=== PATIENT | female | born 1975 | race Caucasian/White ===

== ENCOUNTER 2017-01-13 06:52 | Emergency (ER) | payer SELFPAY ==
[~2017-01-13] VITALS: Ht 157.5 cm; Wt 75.0 kg
[2017-01-13] MEDS ORDERED: ASPIRIN 81MG TABLET PO ONE (08:15)
[2017-01-13] MEDS ORDERED: NITROGLYCERIN OINT 1GM/INCH UDPKT TD ONE (08:15)
[2017-01-13 08:32] LABS: EOSINOPHILS % 0.8 % (0.0-5.0); HEMATOCRIT. 35.5 % (36.0-48.0); HEMOGLOBIN. 11.5 g/dL (12.0-16.0); LYMPHOCYTES % 26.3 % (20.0-50.0); MEAN CORPUSCULAR HEMOGLOBIN 26.3 pg (28.0-32.0); MEAN CORPUSCULAR HGB CONC 32.3 g/dL (31.0-37.0); MEAN CORPUSCULAR VOLUME 81.4 fL (81.0-99.0); MEAN PLATELET VOLUME 10.1 fl (7.4-10.4); NEUTROPHILS % 66.9 % (40.0-76.0); PLATELET 203 x1000/uL (130-400); RED BLOOD CELL COUNT 4.36 mill/uL (4.2-5.4); RED CELL DISTRIBUTION WIDTH 14.4 % (11.6-14.6); WHITE BLOOD COUNT 6.1 x1000/uL (4.5-11.0)
[2017-01-13 08:38] LABS: PROTHROMBIN TIME 10.7 sec
[2017-01-13 08:41] LABS: ALBUMIN 3.4 g/dL (3.4-5.0); ANION GAP 11; CALCIUM 8.5 mg/dL (8.5-10.1); CARBON DIOXIDE 25 mEq/L (21-32); CHLORIDE 108 mEq/L (98-107); INDEX HEMOLYSI 1 (1-3); INDEX ICTERIC 1 (1-4); INDEX LIPEMIC 1 (1-3); UREA NITROGEN BLOOD 10 mg/dL (7-21)
[2017-01-13 08:47] LABS: ALANINE AMINOTRANSFERASE 22 IU/L (13-61); NT PRO B-TYPE NATRIURETIC PEP 72 pg/mL (5-125); TROPONIN I < 0.02 ng/mL (0.00-0.04); eGFR > 60 mL/min (>60)
[2017-01-13 11:29] VITALS: BP 136/75
== END 2017-01-13 12:49 | disposition home or self-care (01) ==
LOC: ER 06:58
DX: R07.89 Other chest pain (principal); F41.9 Anxiety disorder, unspecified
CPT/HCPCS: 36415; 71010; 80053; 81025; 83880; 84484; 85025; 85610; 93005; 99285

== ENCOUNTER 2021-04-18 07:57 | Emergency (ER) | payer MEDICAID ==
[~2021-04-18] VITALS: Ht 152.4 cm; Wt 80.0 kg
[2021-04-18 09:39] LABS: CHLORIDE 108 mEq/L (98-107)
[2021-04-18 09:40] LABS: PROTHROMBIN TIME 10.9 sec (9.6-11.0)
[2021-04-18 09:40] LABS: BASOPHILS % 0.7 % (0.0-2.0); HEMATOCRIT. 36.8 % (36.0-48.0); MEAN CORPUSCULAR HEMOGLOBIN 25.8 pg (28.0-32.0); MEAN CORPUSCULAR VOLUME 79.1 fL (81.0-99.0); MEAN PLATELET VOLUME 9.5 fl (7.4-10.4); MONOCYTES % 10.1 % (2.0-8.0); NEUTROPHILS % 65.2 % (40.0-76.0); PLATELET 204 x1000/uL (130-400); RED BLOOD CELL COUNT 4.65 mill/uL (4.2-5.4); RED CELL DISTRIBUTION WIDTH 16.1 % (11.6-14.6)
[2021-04-18 09:42] LABS: CLARITY URINE CLOUDY (CLEAR); COLOR URINE YELLOW (YELLOW); KETONES URINE 3+ (NEGATIVE); LEUKOCYTE ESTERASE URINE 3+ (NEGATIVE); NITRITE URINE NEGATIVE (NEGATIVE); OCCULT BLOOD URINE TRACE (NEGATIVE); PH URINE 6.5 (4.5-8.0); PROTEIN URINE NEGATIVE (NEGATIVE); SPECIFIC GRAVITY URINE 1.009 (1.005-1.030)
[2021-04-18] MEDS ORDERED: NITR100C PO (09:54)
[2021-04-18] MEDS ORDERED: ONDA4TAB5 PO (09:54)
[2021-04-18 10:50] VITALS: BP 126/69
== END 2021-04-18 10:59 | disposition home or self-care (01) ==
LOC: ER 07:57
DX: N39.0 Urinary tract infection, site not specified (principal)
CPT/HCPCS: 36415; 71045; 80053; 81003; 85025; 93005; 99285

== ENCOUNTER 2021-04-28 05:41 | Emergency (ER) | payer MEDICAID ==
[~2021-04-28] VITALS: Ht 149.9 cm; Wt 74.0 kg
[~2021-04-28 05:41] MED LIST: NITR100C PO; ONDA4TAB5 PO
[2021-04-28 06:07] VITALS: BP 155/85
== END 2021-04-28 07:05 | disposition home or self-care (01) ==
LOC: ER 06:35
DX: F41.9 Anxiety disorder, unspecified (principal)
CPT/HCPCS: 99281

== ENCOUNTER 2021-12-29 06:38 | Emergency (ER) | payer MEDICAID, OTHER ==
[~2021-12-29] VITALS: Ht 149.9 cm; Wt 74.0 kg
[2021-12-29 08:30] VITALS: BP 170/83
[2021-12-29] MEDS ORDERED: SODIUM CHLORIDE 0.9% 1,000 ML IV ONE (08:45)
[2021-12-29 09:18] LABS: BASOPHILS % 0.8 % (0.0-2.0); EOSINOPHILS % 0.2 % (0.0-5.0); HEMATOCRIT. 36.4 % (36.0-48.0); HEMOGLOBIN. 11.7 g/dL (12.0-16.0); LYMPHOCYTES % 28.1 % (20.0-50.0); MEAN CORPUSCULAR HEMOGLOBIN 25.3 pg (28.0-32.0); MEAN CORPUSCULAR VOLUME 78.8 fL (81.0-99.0); MEAN PLATELET VOLUME 9.5 fl (7.4-10.4); NEUTROPHILS % 66.9 % (40.0-76.0); PLATELET 237 x1000/uL (130-400); RED BLOOD CELL COUNT 4.63 mill/uL (4.2-5.4); RED CELL DISTRIBUTION WIDTH 16.7 % (11.6-14.6)
[2021-12-29 09:22] LABS: CLARITY URINE CLEAR (CLEAR); COLOR URINE YELLOW (YELLOW); KETONES URINE NEGATIVE (NEGATIVE); LEUKOCYTE ESTERASE URINE 2+ (NEGATIVE); NITRITE URINE NEGATIVE (NEGATIVE); OCCULT BLOOD URINE 1+ (NEGATIVE); PROTEIN URINE NEGATIVE (NEGATIVE); SPECIFIC GRAVITY URINE 1.011 (1.005-1.030); UROBILINOGEN URINE 0.2 E.U./dL (0.2-1.0)
[2021-12-29 09:26] LABS: CHLORIDE 109 mEq/L (98-107)
[2021-12-29 10:04] LABS: HCG SCREEN NEGATIVE
[2021-12-29] MEDS ORDERED: CEPH500T MT (11:19)
== END 2021-12-29 11:39 | disposition home or self-care (01) ==
LOC: ER 06:38
DX: N39.0 Urinary tract infection, site not specified (principal); D25.9 Leiomyoma of uterus, unspecified; R03.0 Elevated blood-pressure reading, without diagnosis of hypertension; F41.9 Anxiety disorder, unspecified
CPT/HCPCS: 36415; 76830; 76856; 80053; 81003; 84703; 85025; 87086; 93005; 96360; 99285; J7030

== ENCOUNTER 2023-12-13 21:18 | Emergency (ER) | payer MEDICAID, OTHER ==
[~2023-12-13] VITALS: Ht 154.9 cm; Wt 80.0 kg
[~2023-12-13 21:18] MED LIST changes: +CEPH500T MT
[2023-12-13 21:20] VITALS: TEMP 98.6; O2SAT 100
[2023-12-13 23:00] LABS: BASOPHILS % 0.8 % (0.0-2.0); DIFFERENTIAL COMMENT 0; EOSINOPHILS % 1.2 % (0.0-5.0); HEMATOCRIT. 33.1 % (36.0-48.0); HEMOGLOBIN. 10.6 g/dL (12.0-16.0); LYMPHOCYTES % 26.3 % (20.0-50.0); MEAN CORPUSCULAR HEMOGLOBIN 25.5 pg (28.0-32.0); MEAN CORPUSCULAR VOLUME 79.6 fL (81.0-99.0); MONOCYTES % 6.4 % (2.0-8.0); NEUTROPHILS % 65.3 % (40.0-76.0); PLATELET 261 x1000/uL (130-400); RED BLOOD CELL COUNT 4.16 mill/uL (4.2-5.4); RED CELL DISTRIBUTION WIDTH 16.4 % (11.6-14.6)
[2023-12-13 23:08] LABS: CARBON DIOXIDE 26 mEq/L (21-32); CHLORIDE 107 mEq/L (98-107); POTASSIUM 4.1 mEq/L (3.5-5.1); SODIUM 139 mEq/L (136-145)
[2023-12-13 23:09] LABS: CALCIUM 8.8 mg/dL (8.7-10.4)
[2023-12-13 23:13] LABS: CREATININE 0.8 mg/dL (0.6-1.0); GLUCOSE 104 mg/dL (70-105); TROPONIN I HIGH SENSITIVITY 5 ng/L (3.0-34)
[2023-12-13 23:14] LABS: UREA NITROGEN BLOOD 13 mg/dL (9-23)
[2023-12-13 23:15] LABS: ALANINE AMINOTRANSFERASE 11 IU/L (10-49); ALBUMIN 4.4 g/dL (3.2-4.8); ASPARTATE AMINOTRANSFERASE 15 IU/L (<34)
[2023-12-13 23:16] LABS: BILIRUBIN TOTAL 0.2 mg/dL (0.1-1.0); PROTEIN TOTAL 7.5 g/dL (6.0-8.3)
[2023-12-14 00:23] LABS: CLARITY URINE CLOUDY (CLEAR); COLOR URINE YELLOW (YELLOW); GLUCOSE URINE NEGATIVE (NEGATIVE); KETONES URINE NEGATIVE (NEGATIVE); LEUKOCYTE ESTERASE URINE 2+ (NEGATIVE); NITRITE URINE NEGATIVE (NEGATIVE); OCCULT BLOOD URINE 2+ (NEGATIVE); PH URINE 5.5 (4.5-8.0); PROTEIN URINE NEGATIVE (NEGATIVE); SPECIFIC GRAVITY URINE 1.024 (1.005-1.030); UROBILINOGEN URINE 0.2 E.U./dL (0.2-1.0)
[2023-12-14] MEDS: ACETAMINOPHEN 325MG TABLET PO ONE (01:16)
[2023-12-14] MEDS: ONDANSETRON 4MG ODT PO ONE (01:16)
[2023-12-14] MEDS: MAGNESIUM/ALUMINUM HYDROXIDE/SIMETHICONE 30ML UDC PO ONE (01:16)
[2023-12-14 02:57] LABS: TROPONIN I HIGH SENSITIVITY 4 ng/L (3.0-34)
[2023-12-14 04:54] LABS: SQUAMOUS EPITHELIAL CELL URINE 2+ /lpf (RARE/1+)
[2023-12-14 04:55] LABS: RBC URINE 0-2 /hpf (0-2); WBC URINE 25-50 /hpf (0-2)
[2023-12-14 04:56] LABS: BACTERIA URINE 1+
[2023-12-14 05:25] VITALS: BP 158/78; PULSE 72; RESP 18
[2023-12-14] MEDS ORDERED: NITR-87 MT (05:25)
[2023-12-14] MEDS ORDERED: ONDA4TAB50 MT (05:25)
[2023-12-14] MEDS ORDERED: PROT40 MT (05:25)
== END 2023-12-14 05:58 | disposition home or self-care (01) ==
LOC: ER 21:18
DX: K29.70 Gastritis, unspecified, without bleeding (principal); N39.0 Urinary tract infection, site not specified; I10 Essential (primary) hypertension; F41.9 Anxiety disorder, unspecified
CPT/HCPCS: 99285; 71045; 80053; 81003; 83690; 85025; 87086; 84484 ×2; 36415 ×2; 93005; 76705; Q0162

== ENCOUNTER 2024-02-15 10:49 | Emergency (ER) | payer MEDICAID, OTHER ==
[~2024-02-15] VITALS: Ht 144.8 cm; Wt 79.0 kg
[~2024-02-15 10:49] MED LIST changes: +NITR-87 MT; +ONDA4TAB50 MT; +PROT40 MT
[2024-02-15 10:54] VITALS: O2SAT 100
[2024-02-15 11:34] LABS: BASOPHILS % 0.9 % (0.0-2.0); DIFFERENTIAL COMMENT 0; EOSINOPHILS % 0.9 % (0.0-5.0); HEMATOCRIT. 33.4 % (36.0-48.0); HEMOGLOBIN. 10.6 g/dL (12.0-16.0); MEAN CORPUSCULAR HEMOGLOBIN 24.5 pg (28.0-32.0); MEAN CORPUSCULAR HGB CONC 31.7 g/dL (31.0-37.0); MEAN CORPUSCULAR VOLUME 77.4 fL (81.0-99.0); MEAN PLATELET VOLUME 9.7 fl (7.4-10.4); MONOCYTES % 6.6 % (2.0-8.0); NEUTROPHILS % 70.6 % (40.0-76.0); PLATELET 254 x1000/uL (130-400); RED BLOOD CELL COUNT 4.32 mill/uL (4.2-5.4); RED CELL DISTRIBUTION WIDTH 16.9 % (11.6-14.6); WHITE BLOOD COUNT 7.5 x1000/uL (4.5-11.0)
[2024-02-15 11:44] LABS: CHLORIDE 103 mEq/L (98-107); POTASSIUM 4.1 mEq/L (3.5-5.1); SODIUM 137 mEq/L (136-145)
[2024-02-15 11:45] LABS: CALCIUM 9.5 mg/dL (8.7-10.4); CARBON DIOXIDE 25 mEq/L (21-32); PROTHROMBIN TIME 10.7 sec (9.6-11.0)
[2024-02-15 11:50] LABS: CREATININE 0.7 mg/dL (0.6-1.0); GLUCOSE 116 mg/dL (70-105); UREA NITROGEN BLOOD 11 mg/dL (9-23)
[2024-02-15] MEDS ORDERED: IBUPROFEN 600MG TABLET PO ONE (12:15)
[2024-02-15] MEDS: IBUPROFEN 600MG TABLET PO NR (14:08)
[2024-02-15 15:19] LABS: CLARITY URINE CLEAR (CLEAR); COLOR URINE ORANGE (YELLOW); GLUCOSE URINE NEGATIVE (NEGATIVE); KETONES URINE NEGATIVE (NEGATIVE); LEUKOCYTE ESTERASE URINE NEGATIVE (NEGATIVE); NITRITE URINE NEGATIVE (NEGATIVE); OCCULT BLOOD URINE 1+ (NEGATIVE); PH URINE 5.5 (4.5-8.0); PROTEIN URINE NEGATIVE (NEGATIVE); SPECIFIC GRAVITY URINE 1.023 (1.005-1.030); UROBILINOGEN URINE 0.2 E.U./dL (0.2-1.0)
[2024-02-15] MEDS ORDERED: IBUP-2029 MT (15:33)
[2024-02-15 15:44] LABS: BACTERIA URINE 1+; SQUAMOUS EPITHELIAL CELL URINE 1+ /lpf (RARE/1+); WBC URINE 0-2 /hpf (0-2)
[2024-02-15 15:59] VITALS: BP 128/78; PULSE 80; RESP 16; TEMP 98.7
== END 2024-02-15 16:31 | disposition home or self-care (01) ==
LOC: ER 10:49
DX: R10.2 Pelvic and perineal pain (principal); F41.9 Anxiety disorder, unspecified
CPT/HCPCS: 36415; 76830; 76856; 80048; 81003; 85025; 99284